=== PATIENT | male | born 1980 | race Caucasian/White ===

== ENCOUNTER 2020-08-11 19:09 | Emergency (ER) | payer MEDICAID, OTHER ==
[~2020-08-11] VITALS: Ht 188 cm; Wt 81.6 kg
[2020-08-11] MEDS ORDERED: cefTRIAXone SOD 1,000 MG VL IM ONE (23:30)
[2020-08-11 23:46] VITALS: BP 144/97
== END 2020-08-12 00:09 | disposition home or self-care (01) ==
LOC: ER 19:09
DX: L02.415 Cutaneous abscess of right lower limb (principal)
CPT/HCPCS: 96372; 99283; J0696